=== PATIENT | female | born 2000 | race Caucasian/White ===

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

== ENCOUNTER → 2021-03-10 18:54 | Outpatient (CLI) | payer OTHER, SELFPAY | PROVIDERS: PCP Internal Medicine Adolescent Medicine; Visit Provider Nurse Practitioner | DX: Z20.822 Contact with and (suspected) exposure to COVID-19 (principal) | CPT/HCPCS: C9803; U0003; U0005 ==

== ENCOUNTER 2021-06-14 16:10 | Emergency (ER) | payer OTHER, SELFPAY ==
[2021-06-14 16:20] VITALS: BP 134/81; PULSE 89; RESP 19; TEMP 36.7; O2SAT 98; BMI 29.7
--- NOTE | 2021-06-14 17:00 | HMH.EDUTC ---
[facility] [place] Clinical Impression: URI (upper respiratory infection) Qualifiers: URI type: unspecified viral URI Qualified Code(s): J06.9 - Acute upper respiratory infection, unspecified Disposition: Home, Self-Care Condition on Discharge: Good Instructions: DI for Viral Upper Respiratory Infection -- Adult Additional Instructions: covid swab was sent to lab, call tomorrow for results. self isolate until test results are known to be negative No sign of a bacterial infection. Likely viral. Viruses can take 7-14 days to run their course. Nasal saline and bulb syringe or nose [place] to remove nasal drainage to help with nasal congestion. Hard to eat, drink, sleep with nasal congestion so important to keep this cleaned out. Monitor temp. Tylenol or Motrin as needed for pain or fever Encourage fluids, water, Gatorade, Powerade, Pedialyte if infant/toddler/child Warm salt water gargles Warm fluids Sore throat lozenges Sleep elevated Humidifier/vaporizer Follow-up immediately for new or worsening symptoms or no noticeable improvement over the next 48-72 hours. Referrals: Willie Hinson MD [Primary Care Provider] - Time of Disposition: 17:06 Medical Decision Making - Buddy Inquiry Pt receiving controlled substance: No Vital Signs: 06/14/21 16:20 Temperature 98.0 F Temperature Source Oral Pulse Rate [Right Brachial] 89 Respiratory Rate 19 Blood Pressure [Right Arm] 134/81 Blood Pressure Mean [Right Arm] 98 Blood Pressure Source [Right Arm] Automatic Cuff Blood Pressure Position [Right Arm] Sitting 02 Sat by Pulse Oximetry 98 Oxygen Delivery Method Room Air - Lab Data Lab Results 06/14/21 16:32: Influenza Type A Ag Negative, Influenza Type B Ag Negative 06/14/21 17:03: Strep Scn Rapid Clinic Negative Orders (Tests/Meds): ORDERS Category Date Time Status Covid-19 Nasal PCR ([facility]) Routine Lab 06/14/21 16:00 Received Strep Screen Confirmation Stat Micro 06/14/21 17:03 Received [facility] [place] HPI - General Chief complaint: [facility] Stated complaint: covid test, flu test Time Seen by Provider: 06/14/21 17:00 Mode of Arrival: Ambulatory Source of Information: Patient Limitations: No Limitations Description of Symptoms (Recalled from Triage Doc. by RN): PATIENT C/O FEVER, BODY ACHES, HEADACHE, AND SORE THROAT SINCE WEDNESDAY HEENT Symptoms (Recalled from RN notes): Yes Resp Symptoms (Recalled from RN notes): No Skin Symptoms (Recalled from RN notes): No MS Symptoms (Recalled from RN notes): No Functional Status (Recalled from RN notes): WNL - History of Present Illness Provider Complaint: 20 yr old female presents for sore throat,fever,body aches and chills since yesterday. pt states she would like a covid and flu test. no ill contacts - Related Data Home Medications Medication Instructions Recorded Confirmed No Known Home Medications 08/26/18 08/26/18 Allergies Allergy/AdvReac Type Severity Reaction Status Date / Time Penicillins [PENICILLINS] Allergy Unknown Verified 12/23/19 21:07 - Worker's Comp Is this a Worker's Comp case?: No [facility] History - Hepatitis A Screen Drug use history?: No High risk sexual behaviors?: No History of sexually transmitted infection?: No Currently employed?: No Childcare worker?: No Do you have indoor plumbing?: Yes Do you have electricity?: Yes Attestation statement:: This patient has been screened for Hepatitis A risk factors. I have reviewed the patient's past medical history: Yes Medical History: Reports:: Anxiety, Depression Denies:: Cancer, Diabetes Mellitus Type 1, Diabetes Mellitus Type 2, MRSA Laterality Cases: Bilateral: Myringotomy (Ear Tubes) Amputation: No Fractures: No - Social History Smoking Status: Never smoker Alcohol Intake: never Substance Use Type: denies use Occupational Status: other Housing: house Household Members: family - Psychiatric History Pschychiatric History:: Reports:: Anxiety, Depressi
[2021-06-14 17:02] LABS: UTC Influenza A Antigen Negative (Negative); UTC Influenza B Antigen Negative (Negative)
[2021-06-14 17:03] LABS: UTC Strep Screen (Rapid) Negative (Negative)
[2021-06-14 17:05] VITALS: BP 134/81; PULSE 89; RESP 19; TEMP 36.7; O2SAT 98
== END 2021-06-14 17:11 | disposition home or self-care (01) ==
PROVIDERS: Emergency Provider Nurse Practitioner Family; PCP Internal Medicine Adolescent Medicine
DX: J06.9 Acute upper respiratory infection, unspecified (principal); Z88.0 Allergy status to penicillin; F41.8 Other specified anxiety disorders
CPT/HCPCS: 87804; 87880; 99203; C9803; G0463; U0003; U0005

== ENCOUNTER → 2021-08-11 10:34 | Outpatient (CLI) | payer OTHER, SELFPAY ==
[2021-08-11 12:21] LABS: HCG,Quantitative 123 mIU/ml (0-5.42)
== END ==
PROVIDERS: PCP Internal Medicine Adolescent Medicine; Visit Provider Obstetrics & Gynecology
DX: Z34.90 Encounter for supervision of normal pregnancy, unspecified, unspecified trimester (principal)
CPT/HCPCS: 36415; 84702

== ENCOUNTER → 2021-08-18 07:31 | Outpatient (CLI) | payer OTHER, SELFPAY ==
[2021-08-18 08:34] LABS: HCG,Quantitative 2788 mIU/ml (0-5.42)
== END ==
PROVIDERS: Visit Provider Obstetrics & Gynecology
DX: Z34.90 Encounter for supervision of normal pregnancy, unspecified, unspecified trimester (principal)
CPT/HCPCS: 36415; 84702

== ENCOUNTER → 2021-08-20 08:06 | Outpatient (CLI) | payer OTHER, SELFPAY ==
[2021-08-20 10:15] LABS: HCG,Quantitative 5812 mIU/ml (0-5.42)
== END ==
PROVIDERS: Visit Provider Obstetrics & Gynecology
DX: Z34.90 Encounter for supervision of normal pregnancy, unspecified, unspecified trimester (principal)
CPT/HCPCS: 36415; 84702

== ENCOUNTER → 2021-09-05 08:20 | Outpatient (CLI) | payer OTHER, SELFPAY ==
--- NOTE | 2021-09-05 08:27 | US_ITS ---
FINAL REPORT CLINICAL HISTORY: dates FINDINGS: TRANSVAGINAL ULTRASOUND Transvaginal sonographic images of the pelvis were obtained. An intrauterine is identified. Rainbow-rump length measures 1.28 cm consistent with 7 weeks 4 days gestation. Heartbeat is identified at 149 beats per minute. There is a left ovarian cyst measuring 3.1 cm. The right ovary is normal. IMPRESSION: Intrauterine as above. Reviewed, Interpreted and Dictated by Fernando Bergeron III, MD Transcribed by Trixie Thakur Authenticated by Fernando Bergeron III, MD on 09/05/2021 10:15:[address] [facility]
[2021-09-05 09:33] LABS: Basophils # 0.1 K/mm3 (0-0.2); Basophils % 0.6 % (0.1-2.0); Eosinophils # 0.1 K/mm3 (0.0-0.4); Eosinophils % 0.8 % (0.1-12.0); Hematocrit 37.7 % (37.0-47.0); Hemoglobin 12.8 g/dL (12.2-16.2); Lymphocytes # 2.4 K/mm3 (0.7-4.5); Lymphocytes % 24.8 % (10-50); Mean Corpuscular HGB Conc 33.9 g/dL (31.8-35.4); Mean Corpuscular Hemoglobin 29.6 pg (27.0-31.2); Mean Corpuscular Volume 87.2 fl (81-99); Mean Platelet Volume 8.4 fl (7.4-10.4); Monocytes # 0.5 K/mm3 (0.1-1.0); Monocytes % 4.8 % (1.7-9.3); Neutrophils # 6.7 K/mm3 (1.8-7.8); Platelet Count 300 K/mm3 (142-424); Red Blood Count 4.32 M/mm3 (4.20-5.40); Red Cell Distribution Width 13.1 % (11.5-17.5); White Blood Count 9.7 K/mm3 (4.5-13.0)
[2021-09-06 08:16] LABS: HIV Screen 4th Generation wRfx Non Reactive (Non Reactive); Hepatitis B Surface Antigen Negative (Negative); Hepatitis C Antibody <0.1 s/co ratio (0.0-0.9); Rapid Plasma Reagin Ab Titer Non Reactive (NonRea<1:1); Rubella Antibodies, IgG 1.35 index (Immune >0.99)
== END ==
PROVIDERS: PCP Internal Medicine Adolescent Medicine; Visit Provider Obstetrics & Gynecology
DX: Z34.90 Encounter for supervision of normal pregnancy, unspecified, unspecified trimester (principal)
CPT/HCPCS: 36415; 76801; 85025; 86592; 86703; 86762; 86850; 87340; 87380; G0432

== ENCOUNTER 2021-11-30 17:37 | Emergency (ER) | payer OTHER, SELFPAY ==
[2021-11-30 18:20] VITALS: BP 109/65; PULSE 89; RESP 18; TEMP 36.7; O2SAT 96; BMI 34.7
--- NOTE | 2021-11-30 18:44 | HMH.EDUTC ---
[facility] – [place] Disposition Clinical Impression: Viral syndrome, Encounter for laboratory testing for COVID-19 virus Disposition: Home, Self-Care Condition on Discharge: Good Instructions: DI for COVID-19 (Suspected or Confirmed ), Preventing the Spread of Coronavirus Discharge Instructions Additional Instructions: *Monitor Temp, Over the counter Motrin or Tylenol as directed/as needed Tylenol every 4 hours and Motrin every 6 hours (as long as your family doctor has told you that you can take it) for fever or pain. and straight to ER if unable to lower temp less than 101.0 after medication given *Warm salt water gargles may help to soothe the throat *Throat Lozenges *Warm fluids like tea with honey may help to soothe the throat *Sleep elevated *Humidifier/Vaporizer Follow up IMMEDIATELY for new or worsening symptoms or no Noticeable improvement over the next 48-72 hours. 911 for difficulty breathing or swallowing You were tested for today for COVID19 your test result should be back in the next 24-48 hours, you may Check your results on the [facility] My Health portal Make sure to take your Vitamins Vit. C Vit D and Zinc if you can take them Referrals: Willie Hinson MD [Primary Care Provider] - As needed Forms: Work/School Release Time of Disposition: 18:51 Medical Decision Making - Buddy Inquiry Pt receiving controlled substance: No Buddy was queried for this patient: No Vital Signs: 11/30/21 18:20 Temperature 98.1 F Temperature Source Oral Pulse Rate [Left Brachial] 89 Respiratory Rate 18 Blood Pressure [Left Arm] 109/65 L Blood Pressure Mean [Left Arm] 79 Blood Pressure Source [Left Arm] Automatic Cuff Blood Pressure Position [Left Arm] Sitting 02 Sat by Pulse Oximetry 96 Oxygen Delivery Method Room Air Orders (Tests/Meds): ORDERS Category Date Time Status Covid-19 Nasal PCR ([facility]) Routine Lab 11/30/21 18:25 Received [facility] [place] HPI - General Stated complaint: Covid+ Home test cough Congetstion Time Seen by Provider: 11/30/21 18:44 Mode of Arrival: Ambulatory Source of Information: Patient Limitations: No Limitations Description of Symptoms (Recalled from Triage Doc. by RN): PATIENT C/O COUGH, BODY ACHES, CONGESTION, AND FEVER SINCE YESTERDAY. REPORTS A POSITIVE AT HOME COVID TEST HEENT Symptoms (Recalled from RN notes): No Resp Symptoms (Recalled from RN notes): Yes Skin Symptoms (Recalled from RN notes): No MS Symptoms (Recalled from RN notes): No Functional Status (Recalled from RN notes): WNL - History of Present Illness Provider Complaint: Patient states that she started feeling bad yesterday and thought she just had a headcold State that she has been having nasal congestion, cough, body aches and fever States that she took an at home COVID test earlier and it was positive - Related Data Previous Rx's Medication Instructions Recorded ferrous sulfate 142 mg (45 mg 142 mg PO DAILY #30 tab 09/12/21 iron) tablet,extended release vits no.126-ferrous fum 1 tab PO DAILY #90 tab 09/12/21 28 mg iron-folic acid 800 mcg tablet ondansetron HCl 4 mg tablet 4 mg PO Q6H PRN #30 tab 09/26/21 Allergies Allergy/AdvReac Type Severity Reaction Status Date / Time Penicillins [PENICILLINS] Allergy Unknown Verified 11/21/21 13:45 - Worker's Comp Is this a Worker's Comp case?: No [facility] History - Hepatitis A Screen Attestation statement:: This patient has been screened for Hepatitis A risk factors. I have reviewed the patient's past medical history: Yes Medical History: Reports:: Anxiety, Depression Denies:: Cancer, Diabetes Mellitus Type 1, Diabetes Mellitus Type 2, MRSA Laterality Cases: Bilateral: Myringotomy (Ear Tubes) Amputation: No Fractures: No - Social History Smoking Status: Never smoker Alcohol Intake: never Substance Use Type: denies use Occupational Status: other Housing: house Household Members: family - Psychiatric History Pschychiatric History:: Reports:
[2021-11-30 18:53] VITALS: BP 109/65; PULSE 89; RESP 18; TEMP 36.7; O2SAT 96
== END 2021-11-30 18:58 | disposition home or self-care (01) ==
PROVIDERS: Emergency Provider Nurse Practitioner; PCP Internal Medicine Adolescent Medicine
DX: U07.1 COVID-19 (principal); R05.9 Cough, unspecified; R50.9 Fever, unspecified; Z20.822 Contact with and (suspected) exposure to COVID-19
CPT/HCPCS: 99212; C9803; G0463; U0003; U0005

== ENCOUNTER → 2021-12-12 14:18 | Outpatient (CLI) | payer OTHER, SELFPAY ==
--- NOTE | 2021-12-12 14:21 | US_ITS ---
FINAL REPORT CLINICAL HISTORY: 20 wk+ Anatomy Scan OB COMPLETE FINDINGS: There is a single live intrauterine gestation. Presentation is breech. The cervix is closed and measures 3.2 cm. Placenta is anterior, high grade 1. movement is noted. Heart rate is detected at 146 beats per minute. Three-vessel cord with satisfactory umbilical cord insertion. Four-chamber heart is noted. ABDOMEN: Both kidneys are unremarkable. Stomach is unremarkable. SPINE: No anomalies identified. AMNIOTIC FLUID: Appropriate amount. MEASUREMENTS: ULTRASOUND AGE: 21 weeks 4 days. GESTATION AGE: 21 weeks 4 days. ESTIMATED WEIGHT: 428 g GROWTH PERCENTILE: 48 % BPD: 4.96 cm corresponding to 21 weeks 1 day. OFD: 6.66 cm corresponding to 22 weeks 0 days. HC: 18.45 cm corresponding to 20 weeks 6 days. AC: 16.58 cm corresponding to 21 weeks 5 days. FL: 3.64 cm corresponding to 21 weeks 4 days. CEREBELLUM: 2.12 cm corresponding to 21 weeks 3 days. HC/AC: 1.11 CI: 74% FL/BPD: 73% FL/AC: 22% IMPRESSION: Single living IUP with an ultrasound age of 21 weeks 3 days. Reviewed, Interpreted and Dictated by Fernando Bergeron III, MD Transcribed by Jagruti Little Authenticated and [facility]
== END ==
LOC: RAD 14:19
PROVIDERS: PCP Internal Medicine Adolescent Medicine; Visit Provider Obstetrics & Gynecology
DX: Z36.0 Encounter for antenatal screening for chromosomal anomalies (principal)
CPT/HCPCS: 76811

== ENCOUNTER 2022-01-23 08:29 | Outpatient (CLI) | payer OTHER, SELFPAY ==
[2022-01-23 09:21] LABS: Glucose,Fasting 70 mg/dl (74-100)
[2022-01-23 10:33] LABS: Glucose 1 Hour 98 mg/dL (74-100)
[2022-01-23 10:50] VITALS: BP 126/81; PULSE 72; RESP 18; O2SAT 99
== END 2022-01-23 10:58 | disposition home or self-care (01) ==
PROVIDERS: PCP Internal Medicine Adolescent Medicine; Visit Provider Obstetrics & Gynecology
DX: Z34.90 Encounter for supervision of normal pregnancy, unspecified, unspecified trimester (principal)
CPT/HCPCS: 36415; 82951; 96372; J2790

== ENCOUNTER → 2022-03-10 10:24 | Outpatient (CLI) | payer OTHER, SELFPAY ==
--- NOTE | 2022-03-10 10:29 | US_ITS ---
FINAL REPORT CLINICAL HISTORY: sga FINDINGS: There is a single live intrauterine gestation. Presentation is cephalic. Placenta is anterior and grade 1. Cardiac activity is confirmed at 143 bpm. The fetus is active. Three-vessel cord with satisfactory umbilical cord insertion. Four-chamber heart is noted. brain and ventricles are unremarkable. Chest and diaphragm are unremarkable. ABDOMEN: Both kidneys are unremarkable. Stomach is unremarkable. SPINE: No anomalies identified. Both arms and legs noted. AMNIOTIC FLUID: Appropriate amount. MEASUREMENTS: ULTRASOUND AGE: 33 weeks 3 days. GESTATION AGE: 34 weeks 2 days. ESTIMATED WEIGHT: 2207 g GROWTH PERCENTILE: 23% BPD: 8.3 cm consistent with 33 weeks 2 days. OFD: 10.7 cm consistent with 34 weeks 0 days. HC: 30 cm consistent with 33 weeks 2 days. AC: 29.9 cm consistent with 33 weeks 6 days. FL: 6.4 cm consistent with 33 weeks 1 days. HC/AC: 1.01 CI: 77% FL/BPD: 77% FL/AC: 21% IMPRESSION: Single living IUP with an ultrasound age of 33 weeks 3 days. Reviewed, Interpreted and Dictated by Conner Joseph MD Transcribed by Trent Cao Authenticated and [facility]
== END ==
LOC: RAD 10:25
PROVIDERS: PCP Internal Medicine Adolescent Medicine; Visit Provider Obstetrics & Gynecology
DX: O36.5990 Maternal care for other known or suspected poor fetal growth, unspecified trimester, not applicable or unspecified (principal)
CPT/HCPCS: 76816

== ENCOUNTER → 2022-03-27 14:54 | Outpatient (CLI) | payer OTHER, SELFPAY ==
--- NOTE | 2022-03-27 14:57 | US_ITS ---
FINAL REPORT CLINICAL HISTORY: sga, Oliohydramnios FINDINGS: TRANSABDOMINAL ULTRASOUND There is a single live intrauterine gestation. Presentation is cephalic. The cervix is closed and measures 3.3 cm. Placenta is anterior, grade 1. Cardiac activity is confirmed at 144 bpm. Fetus is active. NEGRITO: 6.86 cm cm MEASUREMENTS: ULTRASOUND AGE: 36 weeks 2 days. GESTATION AGE: 36 weeks 5 days. ESTIMATED WEIGHT: 2888 g GROWTH PERCENTILE: 42% LMP percentile BPD: 8.9 cm corresponding with 36 weeks 0 days. OFD: 11.2 cm corresponding with 36 weeks 5 days. HC: 31.7 cm corresponding with 35 weeks 5 days. AC: 32.4 cm corresponding with 36 weeks 3 days. FL: 7.1 cm corresponding with 36 weeks 4 days. HC/AC: 0.98 CI: 80% FL/BPD: 80% FL/AC: 22% BREATHIN/2 MOVEMENT: 2/2 TONE: 2/2 FLUID VOLUME: 2/2 BPP SCORE: 8/8 IMPRESSION: Single living IUP with an ultrasound age of 36 weeks 2 days. BPP SCORE: 8/8 NEGRITO: 6.6 cm Reviewed, Interpreted and Dictated by Conner Joseph MD Transcribed by Ximena Denis Authenticated and [facility]
== END ==
LOC: RAD 14:54
PROVIDERS: PCP Internal Medicine Adolescent Medicine; Visit Provider Obstetrics & Gynecology
DX: O36.5990 Maternal care for other known or suspected poor fetal growth, unspecified trimester, not applicable or unspecified (principal); O41.03X0 Oligohydramnios, third trimester, not applicable or unspecified
CPT/HCPCS: 76816; 76819; 86403

== ENCOUNTER → 2022-03-27 16:50 | Outpatient (CLI) | payer OTHER, SELFPAY | PROVIDERS: PCP Obstetrics & Gynecology; Visit Provider Obstetrics & Gynecology | DX: Z34.90 Encounter for supervision of normal pregnancy, unspecified, unspecified trimester (principal) ==

== ENCOUNTER 2022-03-27 17:48 | Observation (INO) | payer OTHER, SELFPAY ==
[2022-03-27 18:23] VITALS: BP 115/70; PULSE 87; RESP 20; TEMP 36.7; O2SAT 97; BMI 42.0
[2022-03-27 19:20] VITALS: BP 101/55; PULSE 79; RESP 16; TEMP 36.5; O2SAT 97; BMI 42.2
[2022-03-27 19:52] LABS: Microscopic, Urine URINE MICROSCOPIC (MICROSCOPIC)
[2022-03-27 19:53] LABS: Appearance,Urine CLEAR (Clear); Bilirubin,Urine Negative (Negative); Blood, Urine Negative (Negative); Color,Urine YELLOW (Yellow); Glucose,Urine (UA) Negative (Negative); Ketones,Urine Negative (Negative); Leukocyte Esterase,Urine TRACE (Negative); Nitrate,Urine Negative (Negative); Protein,Urine Negative (Negative); Specific Gravity, Urine >= 1.030 (1.005-1.030); Urobilinogen,Urine 0.2 EU/dl (0.2)
[2022-03-27 20:05] LABS: Fetal Membrane Rupture (Rapid) Negative (Negative)
[2022-03-27 20:20] LABS: Amphetamine/Metha Screen,Urine Negative ng/ml (<1000)
[2022-03-27 20:21] LABS: Barbiturates Screen,Urine Negative ng/ml (<200)
[2022-03-27 20:22] LABS: Benzodiazepines Screen,Urine Negative ng/ml (<200); Cannabinoid Screen,Urine Negative ng/ml (<50)
[2022-03-27 20:23] LABS: Cocaine Screen,Urine Negative ng/ml (<300); Methadone Screen,Urine Negative ng/ml (<300)
[2022-03-27 20:24] LABS: Opiate Screen,Urine Negative ng/ml (<300)
[2022-03-27 20:25] LABS: Phencyclidine Screen,Urine Negative ng/ml (<25)
[2022-03-27 20:38] LABS: Amorphous Sediment,Urine 1+ /lpf; Bacteria,Urine 2+ /lpf
--- NOTE | 2022-03-28 08:00 | US_ITS ---
PROCEDURE INFORMATION: Exam: US Doppler Velocimetry of the Umbilical Artery Exam date and time: 03/28/2022 8:59 AM Clinical indication: Other: Fluid 6.69; ; Additional info: Oligo TECHNIQUE: Imaging protocol: US Doppler velocimetry of the umbilical artery with Doppler color and waveform analysis. COMPARISON: No relevant prior studies available. FINDINGS: Umbilical cord and insertion: There are 2 umbilical arteries and 1 umbilical vein. Cord insertion on the abdominal wall is normal. Umbilical artery Doppler: Waveforms are within normal limits for age. Umbilical artery peak systolic velocity: 54 cm/s Umbilical artery systolic to diastolic ratio: Systolic to diastolic ratio is within normal limits for age measuring 2.26. IMPRESSION: Unremarkable umbilical Doppler for age. PROCEDURE INFORMATION: Exam: US Biophysical Profile Without Non-Stress Test Exam date and time: 03/28/2022 8:59 AM Age: 21 years old Clinical indication: Other: Fluid 6.69; ; Additional info: Oligo TECHNIQUE: Imaging protocol: US biophysical profile without non-stress testing. COMPARISON: 1. US OB /MATERNAL DETAIL 12/12/2021 2:25 PM 2. Fetus: Single live intrauterine gestation with a gestational age of 36 weeks 6 days based on prior measurements and an estimated due date of 04/19/2022 FINDINGS: Presentation: Presentation is cephalic. Placenta: Placental location is anterior BIOPHYSICAL PROFILE: breathing movement (BPP): 2 out of 2. body movement (BPP): 2 out of 2. tone (BPP): 2 out of 2. Amniotic fluid (BPP): 2 out of 2. The amniotic fluid index measures 6.7 cm (5th percentile 37 weeks is 7.5 cm). kidneys: anatomy: kidneys and 3 vessel cord seen. MATERNAL ANATOMY: Cervix: The cervix is closed and measures 3 cm. IMPRESSION: Biophysical profile 12/01. The amniotic fluid index is slightly low and measures 6.7 cm (5th percentile 37 weeks is 7.5 cm).
--- NOTE | 2022-03-28 10:06 | EXP.HPDC ---
General Admission date:: 03/27/22 Discharge date: 03/28/22 *Admission Date: 03/27/22 *Chief complaint: Oligohydramnios *History of present illness: She is a 21-year-old 1 para 0 at 36+ weeks gestational age. She had an ultrasound that showed oligohydramnios. She is admitted for rehydration and to check to see if she is leaking any fluid. She is otherwise healthy. [facility] Disclaimer: The information contained in this section may have been updated after the patient was seen, as this information can be updated by other users. Medical History 34 weeks gestation of Electronic cigarette use Social History Smoking Status: Never smoker alcohol intake: never substance use type: denies use current occupational status: employed Travel in the last 8 weeks: None household members: family housing: house Review of Systems Review of Systems Review of systems:: pertinent systems reviewed and negative unless documented below Exam Data for Last 24 hours Vital signs and Labs for Last 24 Hours: Temp Pulse Resp BP Pulse Ox 97.7 F 79 16 101/55 L 97 03/27/22 19:20 03/27/22 19:20 03/27/22 19:20 03/27/22 19:20 03/27/22 19:20 Laboratory Results - last 24 hr 03/27/22 18:05: Urine Color Yellow, Urine Appearance Clear, Urine pH 6.0, Ur Specific [place] >= 1.030, Urine Protein Negative, Urine Glucose (UA) Negative, Urine Ketones Negative, Urine Blood Negative, Urine Nitrate Negative, Urine Bilirubin Negative, Urine Urobilinogen 0.2, Ur Leukocyte Esterase Trace, Urine WBC 3-5, Ur Squamous Epith Cells 5-10, Amorphous Sediment 1+, Urine Bacteria 2+ 03/27/22 18:05: Urine Opiates Screen Negative, Urine Methadone Screen Negative, Ur Barbituates Screen Negative, Ur Phencyclidine Scrn Negative, Ur Amphetamines Screen Negative, U Benzodiazepines Scrn Negative, Urine Cocaine Screen Negative, U Marijuana (THC) Screen Negative 03/27/22 19:40: Membrane Rupture Negative I & O for Last 24 hours: Intake & Output 03/25/22 03/26/22 03/27/22 03/28/22 11:59 11:59 11:59 11:59 Weight 214 lb 15.987 oz Constitutional Constitutional: no acute distress *Routine HEENT Exam Head: Present normocephalic Eye: Present EOMI and PERRL ENT: Present mucous membranes moist *Routine Neck Exam Neck: Present supple; Absent lymphadenopathy *Routine Respiratory Exam Respiratory: Present CTA bilaterally *Routine Cardiovascular Exam Cardiovascular: Present RRR *Routine Abdominal Exam Abdominal: Present soft and normoactive bowel sounds; Absent tenderness *Routine Rectal Exam Rectal:: deferred *Routine Genitalia Exam Genitalia:: deferred *Routine Extremities Exam Extremities: Absent cyanosis, clubbing or edema *Routine Skin Exam Skin: Present warm; Absent rash *Routine Neurological Exam Neurological: Present alert and oriented X3 Meds Home Medications and Allergies Home Medications Medication Instructions Recorded Confirmed Type ondansetron HCl 4 mg tablet 4 mg PO Q6H PRN nausea and 09/26/21 03/27/22 Rx vomiting #30 tabs vits no.126-ferrous fum 1 tab PO DAILY Supplement 03/27/22 03/27/22 History 28 mg iron-folic acid 800 mcg tablet (Classic ) New Prescriptions to Start Prescriptions: Allergies Allergy/AdvReac Type Severity Reaction Status Date / Time Penicillins [PENICILLINS] Allergy Unknown Verified 03/27/22 15:53 Hospital Course Hospital Course Hospital Course: She was started on IV fluids and observed overnight. Ultrasound this morning shows an amniotic fluid index of 6.70. Yesterday her amniotic fluid index was 6.86. The biopsy profile is 8 of 8 heart rate 144 SD ratio is 2.26. Her AmniSure was negative. The baby is active. Nonstress test is reactive. We will send her home to follow-up in 48 hours time for induction of labor. We will give her IM steroids and she will return tomorrow for seco
== END 2022-03-28 11:45 | disposition home or self-care (01) ==
PROVIDERS: Obstetrics & Gynecology; Admitting Provider Nurse Practitioner Obstetrics & Gynecology; PCP Internal Medicine Adolescent Medicine; Visit Provider Nurse Practitioner Obstetrics & Gynecology
DX: O36.5930 Maternal care for other known or suspected poor fetal growth, third trimester, not applicable or unspecified (principal); O41.03X0 Oligohydramnios, third trimester, not applicable or unspecified; Z3A.36 36 weeks gestation of pregnancy
CPT/HCPCS: 59025; 76811; 76819; 76820; 80305; 81001; 84112; 87086; G0378

== ENCOUNTER → 2022-03-29 12:25 | Outpatient (CLI) | payer OTHER, SELFPAY ==
--- NOTE | 2022-03-29 12:58 | PC.NURSE ---
Celestone 12mg IM given in LGM. Tolerated well.
== END ==
LOC: INF 12:27
PROVIDERS: PCP Internal Medicine Adolescent Medicine; Visit Provider Obstetrics & Gynecology
DX: O26.893 Other specified pregnancy related conditions, third trimester (principal); Z3A.36 36 weeks gestation of pregnancy
CPT/HCPCS: 96401

== ENCOUNTER 2022-03-31 05:52 | Inpatient (IN) | payer OTHER, SELFPAY ==
[2022-03-30 16:33] VITALS: BMI 40.0
[2022-03-30 16:59] LABS: Coronavirus 19, PCR Not Detected (NotDetected); Influenza A, PCR Not Detected (NotDetected); Influenza B, PCR Not Detected (NotDetected); Microscopic, Urine URINE MICROSCOPIC (MICROSCOPIC)
[2022-03-30 17:09] LABS: Appearance,Urine CLEAR (Clear); Bilirubin,Urine Negative (Negative); Blood, Urine Negative (Negative); Color,Urine YELLOW (Yellow); Glucose,Urine (UA) Negative (Negative); Ketones,Urine Negative (Negative); Leukocyte Esterase,Urine 1+ (Negative); Nitrate,Urine Negative (Negative); Protein,Urine Negative (Negative); Specific Gravity, Urine 1.025 (1.005-1.030); Urobilinogen,Urine 0.2 EU/dl (0.2)
[2022-03-30 17:22] LABS: Amphetamine/Metha Screen,Urine Negative ng/ml (<1000); Barbiturates Screen,Urine Negative ng/ml (<200)
[2022-03-30 17:23] LABS: Benzodiazepines Screen,Urine Negative ng/ml (<200)
[2022-03-30 17:24] LABS: Cannabinoid Screen,Urine Negative ng/ml (<50); Cocaine Screen,Urine Negative ng/ml (<300)
[2022-03-30 17:25] LABS: Methadone Screen,Urine Negative ng/ml (<300)
[2022-03-30 17:26] LABS: Opiate Screen,Urine Negative ng/ml (<300); Phencyclidine Screen,Urine Negative ng/ml (<25)
[2022-03-30 17:27] LABS: Basophils # 0.1 K/mm3 (0-0.2); Basophils % 0.4 % (0.1-2.0); Eosinophils % 0.2 % (0.1-12.0); Hematocrit 41.4 % (37.0-47.0); Hemoglobin 13.6 g/dL (12.2-16.2); Lymphocytes # 2.7 K/mm3 (0.7-4.5); Lymphocytes % 17.4 % (10-50); Mean Corpuscular HGB Conc 32.8 g/dL (31.8-35.4); Mean Corpuscular Hemoglobin 28.4 pg (27.0-31.2); Mean Corpuscular Volume 86.4 fl (81-99); Mean Platelet Volume 9.3 fl (7.4-10.4); Monocytes # 0.8 K/mm3 (0.1-1.0); Monocytes % 4.8 % (1.7-9.3); Neutrophils # 12.1 K/mm3 (1.8-7.8); Neutrophils % 77.1 % (37.0-80.0); Platelet Count 260 K/mm3 (142-424); Red Blood Count 4.79 M/mm3 (4.20-5.40); Red Cell Distribution Width 13.7 % (11.5-17.5); White Blood Count 15.7 K/mm3 (4.5-13.0)
[2022-03-30 17:30] LABS: MANUAL DIFFERENTIAL MANUAL DIFFERENTIAL (MANUAL DIFF)
[2022-03-30 17:39] LABS: Bacteria,Urine 1+ /lpf; Squamous Epithelial Cell,Urine Occasional #/hpf (0-5)
[2022-03-30 18:36] LABS: Eosinophils % 1 % (0-3); Lymphocytes % 18 % (10-50); Monocytes % 4 % (2-9); Neutrophils % 77 % (42-76); Platelet Estimate Normal; RBC Morphology Normal; Total Cells Counted 100
[2022-03-30 19:10] VITALS: BP 114/69; PULSE 69; RESP 18; TEMP 36.7; O2SAT 99; BMI 39.3
[2022-03-30 19:39] VITALS: BP 115/66; PULSE 71; RESP 17; TEMP 36.6; O2SAT 99
[2022-03-31] VITALS (7 sets, daily range): BP systolic 122–135; BP diastolic 69–88; PULSE 66–76; RESP 16–18; TEMP 36.5–36.9; O2SAT 97–99
--- NOTE | 2022-03-31 10:06 | EXP.HP ---
History of Present Illness *Admission Date: 03/30/22 *Reason for visit:: Oligohydramnios *History of present illness: 21 yo G1 @ 37 2/7 wks TIFFANY 04/19/22; dating by 7 08/30 ultrasound at [facility]--Dr. Pearl labs significant for + THC and Rh negative maternal status NIPT showed negative rh factor but she was given rhogam on 01/23/22 Recent ultrasound showed oligohydramnios with NEGRITO 6. She was admitted for IV hydration and f/u ultrasound did not show improvement in NEGRITO growth 40% and NST category 1 PFSH ON LICENSE OF [facility] Disclaimer: The information contained in this section may have been updated after the patient was seen, as this information can be updated by other users. Medical History 34 weeks gestation of Electronic cigarette use Social History Smoking Status: Never smoker alcohol intake: never substance use type: denies use current occupational status: employed Travel in the last 8 weeks: None household members: family housing: house Review of Systems Constitutional Constitutional: Reports system reviewed and no additional complaints, except as documented and Denies headache(s) ENT Ears, Nose, Mouth, and Throat: Denies headache(s) *Genitourinary Genitourinary: Denies abnormal vaginal bleeding *Neurologic Neurologic: Denies headache(s) and Denies other visual disturbances Meds Home Medications and Allergies Home Medications Medication Instructions Recorded Confirmed Type vits no.126-ferrous fum 1 tab PO DAILY Supplement 03/27/22 03/31/22 History 28 mg iron-folic acid 800 mcg tablet (Classic ) ondansetron HCl 4 mg tablet 4 mg PO TIDP PRN nausea and 03/31/22 03/31/22 History vomiting New Prescriptions to Start Prescriptions: Allergies Allergy/AdvReac Type Severity Reaction Status Date / Time Penicillins [PENICILLINS] Allergy Unknown Verified 03/27/22 15:53 Exam Data for Last 24 hours Vital signs and Labs for Last 24 Hours: Temp Pulse Resp BP Pulse Ox 98.5 F 69 18 124/69 97 03/31/22 07:55 03/31/22 07:55 03/31/22 07:55 03/31/22 07:55 03/31/22 07:55 Laboratory Results - last 24 hr 03/30/22 16:45: Urine Color Yellow, Urine Appearance Clear, Urine pH 6.0, Ur Specific [place] 1.025, Urine Protein Negative, Urine Glucose (UA) Negative, Urine Ketones Negative, Urine Blood Negative, Urine Nitrate Negative, Urine Bilirubin Negative, Urine Urobilinogen 0.2, Ur Leukocyte Esterase 1+ A, Urine RBC None, Urine WBC 3-5, Ur Squamous Epith Cells Occasional, Urine Bacteria 1+ 03/30/22 16:45: SARS-CoV-2 (PCR) Not detected, Influenza A Untype (PCR) Not detected, Influenza Type B (PCR) Not detected 03/30/22 16:45: Urine Opiates Screen Negative, Urine Methadone Screen Negative, Ur Barbituates Screen Negative, Ur Phencyclidine Scrn Negative, Ur Amphetamines Screen Negative, U Benzodiazepines Scrn Negative, Urine Cocaine Screen Negative, U Marijuana (THC) Screen Negative 03/30/22 16:46: WBC 15.7 H, RBC 4.79, Hgb 13.6, Hct 41.4, MCV 86.4, MCH 28.4, MCHC 32.8, RDW 13.7, Plt Count 260, MPV 9.3, Neut % (Auto) 77.1, Lymph % (Auto) 17.4, [place] % (Auto) 4.8, Eos % (Auto) 0.2, Baso % (Auto) 0.4, Neut # (Auto) 12.1 H, Lymph # (Auto) 2.7, [place] # (Auto) 0.8, Eos # (Auto) 0.0, Baso # (Auto) 0.1, Total Counted 100, Neutrophils % (Manual) 77 H, Lymphocytes % (Manual) 18, Monocytes % (Manual) 4, Eosinophils % (Manual) 1, Platelet Estimate Normal, RBC Morphology Normal 03/30/22 16:46: Blood Type B Negative, Antibody Screen Positive 03/30/22 16:46: Antibody Identification See Comments I & O for Last 24 hours: Intake & Output 03/29/22 03/30/22 03/31/22 04/01/22 11:59 11:59 11:59 11:59 Weight 215 lb Microbiology Reports for the Last 24 Hours: Microbiology 03/30/22 16:45 Urine,Clean Catch Urine Culture - Preliminary NO GROWTH AFTER 24 HOURS Constitutional Co
--- NOTE | 2022-03-31 10:36 | EXP.ANES.CKL ---
[facility] Disclaimer: The information contained in this section may have been updated after the patient was seen, as this information can be updated by other users. Medical History 34 weeks gestation of Electronic cigarette use Social History Smoking Status: Never smoker alcohol intake: never substance use type: denies use current occupational status: employed Travel in the last 8 weeks: None household members: family housing: house [facility] Anesthesia Checklist Patient Identification Patient Identification: Verbal (Name & ) Structural Data Admitted From: Inpatient Planned Operative Procedure/s: labor epidural Consent for Planned Operative Procedure(s) Verified: Yes Airway Assessment C-Spine Mobility Assessed: Yes TMJ Mobility Assessed: Yes Dentition: Good Dentition Neurological Assessment Level of Consciousness: Awake, Alert and Appropriate Anesthesia Plan Anesthesia Risk discussed: Yes Anesthesia Plan: Verified ASA Class: II Anesthesia Type: Epidural
--- NOTE | 2022-03-31 18:00 | EXP.LABOR.NO ---
Labor Note Subjective: Date: 03/31/22 Time: 18:00 Comment:: Regular contractions, adequate MVU Cervix unchanged over several hours Increasing caput on vertex NST remains category 1 Recommend proceeding with c section for failure to progress Informed consent obtained and questions answered Will proceed to OR Objective: Cervical Dilation:: 6 Effacement:: 90% Station: 0 Membranes: artificially ruptured Assessment: All Active Problems (Updated 03/31/22 @ 17:10 by Catarina Pearl MD) 37 weeks gestation of (Acute) Electronic cigarette use (Acute) Small for gestational age fetus during in third trimester (Acute) Oligohydramnios in nunez in third trimester (Acute) Rh negative status during (Acute) (Acute)
[2022-03-31 19:55] LABS: Cord Blood PH 7.37 (7.35-7.45)
--- NOTE | 2022-03-31 20:28 | P.OP_ITS ---
Date of procedure: 03/31/22 Pre-op Diagnosis:: 1. 37 2/7 weeks 2. Oligohydramnios 3. Failure to progress in labor Post-op Diagnosis:: Same Procedure performed:: Primary Low Transverse C Section Surgeon:: Catarina Pearl MD Senior Solutions Engineer(s):: Dalila Alfonso CST RUGBY UNION FOOTBALLER:: Davon Fry Anesthesia: epidural Estimated blood loss (mL): 700 Operative findings:: Live born male in vertex presentation Nuchal cord x 2 Grossly normal appearing uterus and ovaries Calcified placenta Operative note:: The patient was taken to the OR and adequate epidural anesthesia was confirmed. She was prepped and draped in normal sterile fashion. A pfannenstiel skin incision was made with the scalpel and carried down to the fascia. The fascia was incised in the midline and sharply dissected off the rectus muscles. The muscles were in the midline and the peritoneum was entered sharply and extended bluntly. The Mode-O self retaining retractor was placed in the abdomen and a bladder flap was created. The uterus was incised in the lower uterine segment in a transverse fashion and extended bluntly. The was delivered in controlled fashion, without complication or shoulder dystocia. Nuchal cord x 2 was easily reduced during delivery. The infant was vigorous at and handed to awaiting brickmason apprentice and nursing staff for evaluation after the umbilical cord was clamped and cut. Cord blood was collected for pH and a cord segment was preserved. The placenta was manually extracted and noted to be intact. The placenta was very calcified but no abruption noted. The uterus was repaired with 0-vicryl in a running/locked fashion. The bladder flap was closed with 2-0 vicryl. The peritoneum was closed with 2-0 vicryl in a running fashion. The fascia was closed with #1 vicryl in a running fashion. The subcutaneous fat was closed with 2-0 vicryl in an interrupted fashion. The skin was closed with loli. The patient tolerated the procedure well. Sponge, lap, needle and instrument counts were correct x 2. She was taken to PACU awake and in stable condition. Condition: stable Disposition: PACU Specimens:: Placenta, cord blood, umbilical cord segment Complications:: none
--- NOTE | 2022-03-31 20:37 | P.PNANES_ITS ---
[facility] Anesthesia Record Part I Anesthesia Record I Intake, IV Amount: 700 Estimated blood loss (mL): 700 Urine output (mL): 100 Blood Pressure: 122/86 SaO2: 99 Pulse Rate: 76 Respiratory Rate: 16 Temperature: 97.7 F Patient is:: Drowsy Stable to PACU at:: 20:36
--- NOTE | 2022-03-31 20:51 | SUR.OPER ---
late entry 194 viable boy born 2018 time out for tap block performed 2020 initiation of tap block 2026 completion of tap block
--- NOTE | 2022-03-31 21:07 | SUR.PHASEI ---
2102 called and gave report to CARLOS Briones RN 2104 transported via bed to OB room. vital signs stable. denies pain at this time. left in stable condition with CARLOS Briones RN at bedside.
--- NOTE | 2022-03-31 23:10 | P.PNANES_ITS ---
[facility] Anesthesia Record Part I Anesthesia Record I Intake, IV Amount: 1,500 Estimated blood loss (mL): 1,200 Urine output (mL): 300 Blood Pressure: 148/95 SaO2: 97 Pulse Rate: 122 Respiratory Rate: 15 Temperature: 97.7 F Patient is:: Drowsy Stable to PACU at:: 23:45
[2022-04-01 04:40] VITALS: BP 125/78; PULSE 84; RESP 16; TEMP 36.7; O2SAT 97
[2022-04-01 06:46] LABS: Hematocrit 35.7 % (37.0-47.0)
[2022-04-01 10:35] VITALS: RESP 18
--- NOTE | 2022-04-01 11:16 | EXP.ANES.II ---
[facility] Anesthesia Record Part II Anesthesia Record Part II Discharge Time: 21:05 Destination: Obstetric PACU nurse assessment reviewed?: Yes Patient Condition:: Good Anesthesia Complications:: None Swallowing reflex intact?: Yes Cyanosis?: No Blood Pressure: 133/70 Pulse Rate: 72 Temperature: 97.7 F Mental Status: Alert & Oriented Pain level:: 0 Nausea and/or vomitting:: None Intake, IV Amount: 0
[2022-04-01 11:18] VITALS: BP 133/70; PULSE 72; TEMP 36.5
--- NOTE | 2022-04-01 12:13 | EXP.ACUTE.PN ---
Subjective *Date: 04/01/22 *Time: 12:13 Interval history: POD #1 Primary LTCS for failure to progress in labor No unusual complaints Lochia is appropriate and Hgb 12.0 today She is tolerating a regular diet She is ambulating and voiding without difficulty Pain control is sufficient Rh negative, precluding need for Rhogam administration Medical Exam Vital signs and Labs for Last 24 Hours: Vital Signs Temp Pulse Pulse Resp BP BP Pulse Ox 04/01/22 10:35 18 04/01/22 04:40 98.0 F 84 16 125/78 97 03/31/22 21:05 97.7 F 72 18 133/70 99 03/31/22 20:55 66 18 123/74 99 03/31/22 20:45 72 17 135/88 98 03/31/22 20:35 97.7 F 76 16 122/86 99 04/01/22 11:18 97.7 F 72 133/70 03/31/22 20:38 97.7 F 76 16 122/86 Intake and Output 04/01/22 04/01/22 04/01/22 03:59 11:59 19:59 Intake Total 700 / 700 0 / 700 Output Total 2300 / 2300 Balance -1600 / -1600 0 / -1600 Intake: Intake, Total IV Amount 700 / 700 0 / 700 Output: Output, Urine Amount (Catheter) 2300 / 2300 [place] 2300 / 2300 Laboratory Results - last 24 hr 03/31/22 19:53: Cord ABG pH 7.37 04/01/22 06:20: Hgb 12.0 L, Hct 35.7 L 04/01/22 06:20: Screen TNP, Baby's Rh Status Negative, Rhogam Infusion TNP I & O for Labs for Last 24 Hours: Intake & Output 03/30/22 03/31/22 04/01/22 04/02/22 11:59 11:59 11:59 11:59 Intake Total 700 / 700 Output Total 2300 / 2300 Balance -1600 / -1600 Weight 215 lb Microbiology Reports for the Last 24 Hours: Microbiology 03/30/22 16:45 Urine,Clean Catch Urine Culture - Preliminary Comment:: No acute distress Comment:: breathing unlabored Comment:: Regular rate, normal peripheral pulses Comments:: abdomen soft, non-distended Mild tenderness Comment:: uterine fundus firm below umbilicus Comment:: 1+ edema bilateral lower extremities Comment:: Incision dry/intact Assessment and Plan *Assessment and plan (1) Delivered by section: Status: Acute Category: Medical Code(s): Z38.01 - Single liveborn infant, delivered by (2) Failure to progress in labor: Status: Acute Category: Medical Code(s): O62.2 - Other uterine inertia (3) 37 weeks gestation of : Status: Acute Category: Medical Code(s): Z3A.37 - 37 weeks gestation of (4) Oligohydramnios in nunez in third trimester: Status: Acute Category: Medical Code(s): O41.03X0 - Oligohydramnios, third trimester, not applicable or unspecified (5) Rh negative status during : Status: Acute Category: Medical Code(s): O26.899 - Other specified related conditions, unspecified trimester; Z67.91 - Unspecified blood type, Rh negative Plan Routine postop care Advance care as tolerated Rhogam not indicated due to negative infant Rh status
[2022-04-02 07:58] VITALS: BP 133/87; PULSE 83; RESP 16; TEMP 36.7; O2SAT 98
--- NOTE | 2022-04-02 17:56 | EXP.ACUTE.PN ---
Subjective *Date: 04/02/22 *Time: 17:56 Interval history: POD #2 primary LTCS No unusual complaints Tolerating regular diet Ambulating and voiding without difficulty Anticipate discharge home tomorrow Medical Exam Vital signs and Labs for Last 24 Hours: Vital Signs Temp Pulse Resp BP Pulse Ox 04/02/22 07:58 98.0 F 83 16 133/87 98 I & O for Labs for Last 24 Hours: Intake & Output 03/31/22 04/01/22 04/02/22 04/03/22 11:59 11:59 11:59 11:59 Intake Total 700 / 700 Output Total 2300 / 2300 Balance -1600 / -1600 Weight 215 lb Microbiology Reports for the Last 24 Hours: Microbiology 03/30/22 16:45 Urine,Clean Catch Urine Culture - Final Multiple organisms, suggests contamination. Comment:: No acute distress Comment:: breathing unlabored Comment:: Regular rate, normal peripheral pulses Comments:: abdomen soft, non-distended Mild tenderness Comment:: uterine fundus firm below umbilicus Comment:: 1+ edema bilateral lower extremities Comment:: Incision dry/intact Assessment and Plan *Assessment and plan (1) Delivered by section: Status: Acute Category: Medical Code(s): Z38.01 - Single liveborn infant, delivered by (2) 37 weeks gestation of : Status: Acute Category: Medical Code(s): Z3A.37 - 37 weeks gestation of (3) Failure to progress in labor: Status: Acute Category: Medical Code(s): O62.2 - Other uterine inertia (4) Oligohydramnios in nunez in third trimester: Status: Acute Category: Medical Code(s): O41.03X0 - Oligohydramnios, third trimester, not applicable or unspecified (5) Rh negative status during : Status: Acute Category: Medical Code(s): O26.899 - Other specified related conditions, unspecified trimester; Z67.91 - Unspecified blood type, Rh negative Plan Anticipate discharge home tomorrow Plan staple removal prior to discharge
--- NOTE | 2022-04-03 11:21 | EXP.DC.SUM ---
General Admission date:: 03/31/22 HPI HPI HPI: 21 yo G1 @ 37 2/7 wks TIFFANY 04/19/22; dating by 7 08/30 ultrasound at [facility]--Dr. Pearl labs significant for + THC and Rh negative maternal status NIPT showed negative rh factor but she was given rhogam on 01/23/22 Recent ultrasound showed oligohydramnios with NEGRITO 6. She was admitted for IV hydration and f/u ultrasound did not show improvement in NEGRITO growth 40% and NST category 1 Hospital Course Hospital Course Hospital Course: course uncomplicated She is discharged home on POD #3 in stable condition She is tolerating a regular diet She is ambulating and voiding without difficulty She is pumping and feeding breast milk to infant Lochia is appropriate in amount Hgb 12.0 Exam Data for Last 24 hours Vital signs and Labs for Last 24 Hours: Temp Pulse Resp BP Pulse Ox 98.0 F 83 16 133/87 98 04/02/22 07:58 04/02/22 07:58 04/02/22 07:58 04/02/22 07:58 04/02/22 07:58 I & O for Last 24 hours: Intake & Output 03/31/22 04/01/22 04/02/22 04/03/22 11:59 11:59 11:59 11:59 Intake Total 700 / 700 Output Total 2300 / 2300 Balance -1600 / -1600 Weight 215 lb Microbiology Reports for the Last 24 Hours: Microbiology 03/30/22 16:45 Urine,Clean Catch Urine Culture - Final Multiple organisms, suggests contamination. Constitutional Constitutional: no acute distress *Routine HEENT Exam Head: Present normocephalic Eye: Absent conjunctival icterus or scleral injection ENT: Present mucous membranes moist *Routine Neck Exam Neck: Present supple *Routine Respiratory Exam Respiratory: Present CTA bilaterally *Routine Cardiovascular Exam Cardiovascular: Present RRR *Routine Abdominal Exam Abdominal: Present soft; Absent tenderness or distended *Routine Rectal Exam Patient deferred: visual exam and digital exam *Routine Exam Patient deferred: external exam Comments: Fundus firm below umbilicus *Routine Extremities Exam Extremities: Present edema *Routine Skin Exam Skin: Present intact and dry Comments: Incision intact without erythema or purulent drainage *Routine Neurological Exam Neurological: Present alert and oriented X3 Routine Psychiatric Exam Psychiatric: Present normal affect; Absent depressed DS: Diagnosis Discharge Diagnosis (1) Delivered by section: Status: Acute (2) 37 weeks gestation of : Status: Acute (3) Failure to progress in labor: Status: Acute (4) Oligohydramnios in nunez in third trimester: Status: Acute (5) Rh negative status during : Status: Acute Meds Home Medications and Allergies Home Medications Medication Instructions Recorded Confirmed Type vits no.126-ferrous fum 1 tab PO DAILY Supplement 03/27/22 03/31/22 History 28 mg iron-folic acid 800 mcg tablet (Classic ) ondansetron HCl 4 mg tablet 4 mg PO TIDP PRN nausea and 03/31/22 03/31/22 History vomiting ibuprofen 400 mg tablet 800 mg PO Q6HP PRN Mild To 04/03/22 Rx Moderate Pain #30 tabs oxycodone 5 mg tablet 10 mg PO Q4HP PRN Moderate To 04/03/22 Rx Severe Pain #24 tabs New Prescriptions to Start Prescriptions: Catarina Salinas oxycodone Catarina Pearl Allergies Allergy/AdvReac Type Severity Reaction Status Date / Time Penicillins [PENICILLINS] Allergy Unknown Verified 03/27/22 15:53 Discharge Plan Disposition Patient Disposition: Home, Self-Care Discharge Order Discharge Orders: Discharge Order (Routine); Ordered 04/03/22 Ordered By: Catarina Pearl Follow up Plan Follow up with: Catarina Pearl MD [Staff Physician] - 04/14/22 2:30 pm Prescriptions/Medication Reconciliation: New ibuprofen 400 mg Tablet 800 mg PO Q6HP PRN (Reason: Mild To Moderate Pain) Qty: 30 0RF
== END 2022-04-03 16:45 | disposition home or self-care (01) | DRG 788 ==
LOC: OBOUT 05:55 → OB 05:55
PROVIDERS: Obstetrics & Gynecology; Admitting Provider Obstetrics & Gynecology; PCP Internal Medicine Adolescent Medicine; Referring Provider Obstetrics & Gynecology; Visit Provider Obstetrics & Gynecology
PROC: 10D00Z1 Extraction of Products of Conception, Low, Open Approach (ICD-10-PCS; CPT 59514; principal; 2022-03-31 07:00)
DX: O41.03X0 Oligohydramnios, third trimester, not applicable or unspecified (principal); O69.81X0 Labor and delivery complicated by cord around neck, without compression, not applicable or unspecified; O36.5990 Maternal care for other known or suspected poor fetal growth, unspecified trimester, not applicable or unspecified; Z3A.37 37 weeks gestation of pregnancy; O43.893 Other placental disorders, third trimester; Z37.0 Single live birth; O62.0 Primary inadequate contractions; O99.334 Smoking (tobacco) complicating childbirth; F17.290 Nicotine dependence, other tobacco product, uncomplicated; O62.2 Other uterine inertia
CPT/HCPCS: 59514; 36415; 59025; 80305; 81001; 82800; 85007; 85014; 85018; 85025; 86850; 86870; 87086; C1758; C9290; C9803; J2405; U0003; U0005